=== PATIENT | male | born 1950 ===

== ENCOUNTER 2023-07-15 07:00 | Day surgery (SDC) | payer MEDICARE, OTHER, SELFPAY ==
--- NOTE | 2023-07-15 | PATH_ITS ---
[facility] Accession Number: [id number] No. of containers..03 Tissue . 01 Material submitted: . PART A: colon - DESCENDING POLYP @ 20CM PART B: colon - DESCENDING @ 15cm PART C: rectum - RECTAL POLYP . 01 Diagnosis: A. COLON, DESCENDING POLYP AT 20 CM, BIOPSY: - HYPERPLASTIC POLYP. - NEGATIVE FOR DYSPLASIA OR MALIGNANCY. -- B. COLON, DESCENDING, AT 15 CM, BIOPSY: - HYPERPLASTIC POLYP. - NEGATIVE FOR DYSPLASIA OR MALIGNANCY. -- C. COLON, RECTUM, POLYP BIOPSY: - HYPERPLASTIC POLYP. - NEGATIVE FOR DYSPLASIA OR MALIGNANCY. TXN 07/25/2023 1453 Local . 01 Electronically signed: . Raj Garcia MD, Pathologist NPI- [id number] . 01 Gross description: . Part A: DESCENDING POLYP @ 20CM: Received in formalin is 1 fragment(s) of [place], soft tissue measuring 0.4 x 0.3 x 0.2 cm submitted entirely in 1 cassette(s) Part B: DESCENDING @ 15cm: Received in formalin is 1 fragment of [place] soft tissue measuring 0.8 x 0.6 x 0.9 cm. Specimen is sectioned and submitted in its entirety in 1 cassette. Part C: RECTAL POLYP: Received in formalin is 2 fragment(s) of [place], soft tissue measuring 0.1 x 0.1 x 0.1 cm in aggregate submitted entirely in 1 cassette(s) /MATHEUS 07/16/2023 1945 Local . 01 Pathologist provided ICD-10: Z12.11 . 01 CPT . 089810, [id number], [id number] Specimen Comment: A courtesy copy of this report has been sent to [phone] Performed at: 01 [facility] [address] [facility] [place], [place], [place] [id number] MD Raghu Bowden MD Phone: [phone]
[2023-07-15 07:19] VITALS: BMI 22.4
[2023-07-15 07:26] VITALS: BP 152/82; PULSE 86; RESP 16; TEMP 36.9; O2SAT 95
[2023-07-15] MEDS: LACTATED RINGERS 1,000 ML 42 ML IV (07:33)
--- NOTE | 2023-07-15 08:08 | PM.HP.1 ---
History of Present Illness History of Present Illness Date Patient Seen: 07/15/23 Time Patient Seen: 08:08 Chief complaint: SDC Narrative: First colonoscopy for colon cancer screening. No family history or symptoms concerning for colon cancer. COUNTS INCLUDE 234 BEDS AT THE [facility] Social History household members: spouse Smoking Status: Current every day smoker alcohol intake: current Meds Home Medications and Allergies Home Medications Medication Instructions Recorded Confirmed Type No Known Home Medications 07/15/23 07/15/23 History Allergies Allergy/AdvReac Type Severity Reaction Status Date / Time No Known Drug Allergies Allergy Verified 07/15/23 07:13 Review of Systems Review of Systems ROS: Yes All systems reviewed with the patient and are negative except as otherwise documented Exam Vital Signs (past 8 hours): - 07/15/23 07:26 Temperature 98.4 F Pulse Rate 86 Respiratory Rate 16 Blood Pressure 152/82 H Pulse Oximetry 95 Oxygen Delivery Method Room Air Oxygen Delivery Method Room Air Const General: cooperative and healthy appearing Nutritional Appearance: average body habitus HENMT Head: normocephalic and atraumatic Ears: hearing grossly normal bilaterally Neck Neck: trachea midline Resp Effort & Inspection: normal respiratory effort and able to speak in complete sentences Cardio Rate: regular rate Rhythm: regular rhythm GI Palpation: soft Skin General: atrophy and dry skin Neuro General: patient alert, patient awake and patient oriented x3 Psych Appearance: grossly normal Mental Status: mental status grossly normal Attitude: cooperative Judgment: judgment good Assessment & Plan Assessment & Plan narrative: colonoscopy with anesthesia for colon cancer screening. Time Spent With Patient Time with patient: less than 30 minutes
--- NOTE | 2023-07-15 08:17 | PM.OP.COLON ---
Operative Date/Time/Diagnoses Date of procedure: 07/15/23 Time of procedure: 08:44 Pre-op diagnosis: Colon cancer screening Post-op diagnosis: same Procedure & Clinicians Study performed: Colonoscopy with snare polypectomy, hot snare Same procedure as scheduled: Yes Indications: Colon cancer screening Surgeon: Aurelia Gregory Procedure Notes Procedure in detail: Preop diagnosis: Colon cancer screening Postop diagnosis: Same Operative procedure: Colonoscopy with hot snare polypectomy x3 Surgeon: Maritza Gregory MD anesthetic: Propofol with anesthesia Findings: Severe diverticulosis of the descending colon, meyer diverticulosis. Three polyps identified in the descending colon. One at 20 cm sessile and 4 mm, 1 at 15 cm on a long stalk approximately 1.0 cm and a 3rd in the rectum 2 mm sessile, all taken with hot snare Procedure: Patient placed in a lateral position. Rectal exam performed showing normal tone no masses. Prostate was palpated with no significant nodules or masses. Scope was inserted into the rectum and advanced to ileocecal valve with minimal difficulty. Insufflation extraction scope and the above findings. Impression: Meyer diverticulosis with severe diverticulosis of the sigmoid colon. Three polyps identified in the descending colon as described above, all taken with hot snare Plan: Repeat colonoscopy in 5 years unless otherwise indicated by change in clinical condition Findings: divertiulosis and polyp(s) (4 mm polyp at 20 cm of the descending colon, 1 cm polyp on stalk at 15 cm in the descending colon, and a rectal polyp 2 mm and sessile) Specimen(s): other (Three polyps as above) Complications: none Post-procedure Recommendations: Colonoscopy in 5 years Follow up: as needed Disposition: PACU
[2023-07-15 08:48] VITALS: BP 125/78; PULSE 72; RESP 20; TEMP 36.3; O2SAT 100
[2023-07-15 08:52] VITALS: BP 143/89; PULSE 76; RESP 14; O2SAT 100
[2023-07-15 08:59] VITALS: BP 168/53; PULSE 72; RESP 15; O2SAT 100
[2023-07-15 09:03] VITALS: BP 176/89; PULSE 71; RESP 16; TEMP 36.3; O2SAT 98
[2023-07-15 09:13] VITALS: BP 155/90; PULSE 68; RESP 14; TEMP 36.4; O2SAT 100
== END 2023-07-15 09:25 | disposition home or self-care (01) ==
PROVIDERS: Referring Provider Surgery; Visit Provider Surgery
PROC: 0DJD8ZZ Inspection of Lower Intestinal Tract, Via Natural or Artificial Opening Endoscopic (ICD-10-PCS; CPT 45378; principal; 2023-07-15 08:15)
DX: Z12.11 Encounter for screening for malignant neoplasm of colon (principal); K57.30 Diverticulosis of large intestine without perforation or abscess without bleeding; K63.5 Polyp of colon; K62.1 Rectal polyp
CPT/HCPCS: 45385; J2704